=== PATIENT | female | born 1990 | race Caucasian/White ===

== ENCOUNTER 2019-07-18 17:27 | Inpatient (IN) ==
[2019-07-18 18:24] LABS: Basophils # 0.1 K/mcL (0.0-0.2); Basophils % 0.8 %; Eosinophils # 0.4 K/mcL (0.0-0.6); Hematocrit 39.6 % (35.3-44.9); Hemoglobin 13.1 g/dL (11.5-15.4); Immature Granulocytes % 0.6 % (0-4); Lymphocytes # 2.9 K/mcL (0.6-4.6); Lymphocytes % 32.4 %; Mean Corpuscular HGB Conc 33.1 g/dL (31.6-35.5); Mean Corpuscular Hemoglobin 28.1 pg (28.0-33.3); Mean Corpuscular Volume 84.8 fL (83.0-100.0); Mean Platelet Volume 9.8 fL (9.4-12.4); Monocytes # 0.6 K/mcL (0.0-1.3); Monocytes % 6.5 %; Platelet Count 315 K/mcL (140-400); Red Blood Count 4.67 M/mcL (3.82-4.97); Red Cell Distribution Width 14.6 % (11.5-14.5); Segmented Neutrophils % 55.7 %; White Blood Count 8.9 K/mcL (4.3-11.1)
[2019-07-18 18:29] LABS: Bilirubin,Urine Negative (Negative); Blood,Urine Small (Negative); Clarity,Urine Cloudy (Clear); Color,Urine Yellow (Yellow); Glucose,Urine (UA) Normal (Normal); Ketones,Urine Negative (Negative); Leukocyte Esterase,Urine Small (Negative); Nitrite,Urine Negative (Negative); PH,Urine 7.5 pH Units (5.0-8.0); Protein,Urine Negative (Neg-Trace); Specific Gravity,Urine 1.011 (1.010-1.025); Urobilinogen,Urine Normal (Normal)
[2019-07-18 18:32] LABS: Bacteria,Urine Many per hpf (None-Few); Hyaline Casts,Urine None Seen per lpf (None-Few); Squamous Epithelial Cell,Urine Many per lpf (None-Few)
[2019-07-18 18:35] LABS: Amphetamine Screen,Urine Positive ng/mL (Cutoff=1000); Barbiturate Screen,Urine Negative ng/mL (Cutoff=200); Benzodiazepines Screen,Urine Negative ng/mL (Cutoff=200); Cannabinoid Screen,Urine Negative ng/mL (Cutoff = 50); Cocaine Screen,Urine Negative ng/mL (Cutoff= 300); Opiate Screen,Urine Negative ng/mL (Cutoff=300); Phencyclidine Screen,Urine Negative ng/mL (Cutoff=25)
[2019-07-18 18:36] LABS: Estimated Average Glucose 111 mg/dl
[2019-07-18 18:47] LABS: Acetaminophen < 10 mcg/mL (10-20); BUN/Creatinine Ratio 10 (6-26); Blood Urea Nitrogen 6 mg/dL (6-20); Calcium 9.6 mg/dL (8.6-10.3); Carbon Dioxide 27 mEq/L (23-29); Chloride 101 mEq/L (98-107); Chol/HDL Ratio 2.3 (0-4.9); Cholesterol 174 mg/dL (< 200); Ethanol < 10 mg/dL (Less than 10); Glucose 87 mg/dL (70-105); HDL Cholesterol 76 mg/dL (40-59); LDL Cholesterol,Calculated 84 mg/dL (0-99); Osmolality,Calculated 283 (280-300); Potassium 3.8 mEq/L (3.5-5.1); Salicylate < 2.5 mg/dL (15.0-30.0); Sodium 138 mEq/L (136-145); Triglycerides 71 mg/dL (< 150); eGFR For African Americans > 60 (> 60); eGFR For Non-African Americans > 60 (> 60)
[2019-07-18 19:00] LABS: Thyroid Stimulating Hormone 1.456 mcIU/mL (0.340-5.600)
[2019-07-18] MEDS ORDERED: Haloperidol Lactate 5 MG/ML VIAL IM PRN (22:08)
[2019-07-18] MEDS ORDERED: *HR* LORazepam 2 MG/ML VIAL IM PRN (22:08)
[2019-07-18] MEDS ORDERED: MOM Conc 10 ML UD.LIQ PO PRN (22:08)
[2019-07-18] MEDS ORDERED: Mag Hydrox/Al Hydrox/Simeth 30 ML UDC PO PRN (22:08)
[2019-07-18] MEDS ORDERED: *HR* LORazepam 1 MG TABLET PO PRN (22:08)
[2019-07-18] MEDS ORDERED: Ibuprofen 400 MG TABLET PO PRN (22:08)
[2019-07-18] MEDS: Nicotine 2 MG GUM BC PRN (23:35)
[2019-07-18] MEDS: QUEtiapine Fumarate 25 MG TABLET PO PRN (23:36)
[2019-07-19] MEDS: ARIPiprazole 5 MG TABLET PO SCH (11:43)
[2019-07-19] MEDS: Nicotine 2 MG GUM BC PRN ×2 (11:43→17:17)
[2019-07-19] MEDS: QUEtiapine Fumarate 25 MG TABLET PO PRN (20:08)
[2019-07-19] MEDS: hydrOXYzine pamoate 25 MG CAPSULE PO PRN (20:08)
[2019-07-20] MEDS: ARIPiprazole 5 MG TABLET PO SCH (09:02)
[2019-07-20] MEDS: Nicotine 2 MG GUM BC PRN ×3 (09:03→20:45)
[2019-07-20] MEDS: hydrOXYzine pamoate 25 MG CAPSULE PO PRN (20:44)
[2019-07-20] MEDS: QUEtiapine Fumarate 25 MG TABLET PO PRN (20:44)
[2019-07-21] MEDS: ARIPiprazole 5 MG TABLET PO SCH (08:17)
[2019-07-21] MEDS: Nicotine 2 MG GUM BC PRN ×3 (08:17→14:04)
[2019-07-21 08:20] VITALS: BP 102/65
== END 2019-07-21 14:35 | disposition home or self-care (01) | DRG 753 ==
LOC: EMEROOARM 17:27 → 1ANU 17:27
PROVIDERS: ADMIT Psychiatry & Neurology Psychiatry; ATTEND Psychiatry & Neurology Psychiatry

== ENCOUNTER 2020-03-25 21:25 | Inpatient (IN) ==
[2020-03-25] MEDS ORDERED: *HR* LORazepam 2 MG/ML VIAL IM PRN (22:20)
[2020-03-25] MEDS ORDERED: Ibuprofen 400 MG TABLET PO PRN (22:20)
[2020-03-25] MEDS ORDERED: Mag Hydrox/Al Hydrox/Simeth 30 ML UDC PO PRN (22:20)
[2020-03-25] MEDS ORDERED: Haloperidol Lactate 5 MG/ML VIAL IM PRN (22:20)
[2020-03-25] MEDS ORDERED: MOM Conc 10 ML UD.LIQ PO PRN (22:20)
[2020-03-25] MEDS: QUEtiapine Fumarate 25 MG TABLET PO PRN (23:26)
[2020-03-25] MEDS: hydrOXYzine pamoate 25 MG CAPSULE PO PRN (23:26)
[2020-03-26] MEDS: Nicotine 21 MG PATCH.TD24 TD SCH (08:51)
[2020-03-26] MEDS ORDERED: QUEtiapine Fumarate 25 MG TABLET PO PRN (11:49)
[2020-03-26] MEDS: Venlafaxine XR (24 HR) 37.5 MG CAP.ER.24H PO SCH (12:22)
[2020-03-26] MEDS: hydrOXYzine pamoate 25 MG CAPSULE PO PRN ×2 (12:22→20:08)
[2020-03-26] MEDS: QUEtiapine Fumarate 25 MG TABLET PO PRN (20:08)
[2020-03-27] MEDS: Venlafaxine XR (24 HR) 37.5 MG CAP.ER.24H PO SCH (09:47)
[2020-03-27] MEDS: Nicotine 21 MG PATCH.TD24 TD SCH (09:47)
[2020-03-27] MEDS: Lurasidone 20 MG TABLET PO SCH (12:24)
[2020-03-27] MEDS: *HR* LORazepam 1 MG TABLET PO PRN (12:24)
[2020-03-27] MEDS: haloperidoL 5 MG TABLET PO PRN (12:24)
[2020-03-28] MEDS: Venlafaxine XR (24 HR) 37.5 MG CAP.ER.24H PO SCH (08:29)
[2020-03-28] MEDS: Lurasidone 20 MG TABLET PO SCH (08:30)
[2020-03-28] MEDS: Nicotine 21 MG PATCH.TD24 TD SCH (08:30)
[2020-03-28] MEDS: haloperidoL 5 MG TABLET PO PRN (08:33)
[2020-03-28] MEDS: *HR* LORazepam 1 MG TABLET PO PRN (08:33)
[2020-03-28] MEDS: hydrOXYzine pamoate 25 MG CAPSULE PO PRN (20:12)
[2020-03-28] MEDS: QUEtiapine Fumarate 25 MG TABLET PO PRN (20:12)
[2020-03-29] MEDS: Venlafaxine XR (24 HR) 37.5 MG CAP.ER.24H PO SCH (08:27)
[2020-03-29] MEDS: Nitrofurantoin (BID) 100 MG CAPSULE PO SCH ×2 (08:27→15:45)
[2020-03-29] MEDS: hydrOXYzine pamoate 25 MG CAPSULE PO PRN ×2 (08:27→15:45)
[2020-03-29] MEDS: Nicotine 21 MG PATCH.TD24 TD SCH (08:27)
[2020-03-29] MEDS: cloNIDine HCL 0.1 MG TABLET PO PRN (16:08)
[2020-03-29] MEDS: QUEtiapine Fumarate 25 MG TABLET PO PRN (20:41)
[2020-03-30] MEDS: Nicotine 21 MG PATCH.TD24 TD SCH (08:35)
[2020-03-30] MEDS: Nitrofurantoin (BID) 100 MG CAPSULE PO SCH (08:35)
[2020-03-30] MEDS: Venlafaxine XR (24 HR) 37.5 MG CAP.ER.24H PO SCH (08:38)
[2020-03-30] MEDS: cloNIDine HCL 0.1 MG TABLET PO PRN (08:50)
[2020-03-30] MEDS: hydrOXYzine pamoate 25 MG CAPSULE PO PRN (08:50)
[2020-03-30 08:52] VITALS: BP 107/66
== END 2020-03-30 10:50 | disposition home or self-care (01) | DRG 751 ==
LOC: 1ANU 21:25 → EMEROOARM 21:25 → 1ANU 22:55 → SUATTDRO 03-26 17:31
PROVIDERS: ADMIT Psychiatry & Neurology Psychiatry; ATTEND Psychiatry & Neurology Psychiatry